=== PATIENT | female | born 1955 | race Caucasian/White ===

== ENCOUNTER → 2016-11-19 | Outpatient (CLI) | payer OTHER | LOC: FIMAGING 14:07 | DX: Z12.31 Encounter for screening mammogram for malignant neoplasm of breast (principal) | CPT/HCPCS: G0202 ==

== ENCOUNTER 2017-08-15 12:38 | Emergency (ER) | payer OTHER ==
--- NOTE | 2017-08-15 13:28 | EDPHY ---
H & P Time Seen by Provider: 08/15/17 12:57 HPI/ROS: CHIEF COMPLAINT: Left-sided chest pain HISTORY OF PRESENT ILLNESS: Patient started having symptoms on her left side when she woke up at 10:00 a.m. Yesterday. She describes intermittent waxing waning left-sided chest pain just below her scapula which comes to the front. Sometimes it is pleuritic but it is never exertional. Not associated with cough or fever or injury or trauma or skin rash. It has been present ever since 10:00 a.m. Yesterday and never completely gone but sometimes is better and sometimes is worse. REVIEW OF SYSTEMS: Eye: no change in vision ENT: no sore throat Cardiac: HPI no palpitations Pulmonary: no cough or SOB Abdomen: no vomiting, diarrhea, abdominal pain Musculoskeletal: HPI no leg swelling Skin: no rash Neuro: no headache Constitutional: no fever : no urinary symptoms A comprehensive 10 point review of systems is otherwise negative aside from elements mentioned in the history of present illness. PAST MEDICAL HISTORY: Hysterectomy and tonsillectomy, fibroid embolization. Negative for diabetes hypertension or high cholesterol Family history: Negative for premature coronary disease or venous thromboembolism. Social history: Negative for tobacco or cocaine. No recent travel or immobilization. General Appearance: Alert and conversant, cooperative. Eyes: No scleral icterus. ENT, Mouth: Normal mucous membranes. Respiratory: Normal respiratory effort, breath sounds equal, lungs are clear to auscultation. No wheezing. Cardiovascular: Regular rate and rhythm. Gastrointestinal: Abdomen is soft and non tender. Neurological: Alert, face symmetric, normal motor and sensory in extremities. Skin: No zoster. Musculoskeletal: No peripheral edema. No calf tenderness. Psychiatric: Not agitated. Emergency Department course/MDM: Patient presents with chest symptoms which would be atypical for acute coronary syndrome. I think she is low risk, will proceed with EKG and chest x-ray, troponin and D-dimer. Plan to discharge with outpatient follow-up if workup negative. 1354: D-dimer negative and troponin 0. EKG reviewed with Dr. Holm, recommendation plan for discharge and outpatient follow-up. Results discussed with the patient, symptomatic treatment and cardiology follow- up as recommended. Smoking Status: Never smoked Constitutional: Initial Vital Signs Temperature (C) 36.8 C 08/15/17 12:55 Heart Rate 75 08/15/17 12:55 Respiratory Rate 18 06/26/18 12:55 Blood Pressure 175/101 H 08/15/17 12:55 O2 Sat (%) 96 08/15/17 12:55 O2 Delivery Mode Room Air Allergies/Adverse Reactions: Penicillins Allergy (Verified 05/09/14 17:40) promethazine [From Phenergan] Allergy (Verified 08/15/17 13:02) Home Medications: Medication Instructions Recorded Estradiol 08/15/17 Wellbutrin 150mg SR (*) 08/15/17 Medical Decision Making - Diagnostics EKG Interpretation: 12-lead EKG interpreted by me; official reading is in trace master. My interpretation is sinus rhythm with left atrial abnormality, inferior Q-waves noted in 3 and F Imaging Results: Imaging Impressions Chest X-Ray 08/15/17 13:09 Impression: No acute findings in the chest. Imaging: I viewed and interpreted images myself Differential Diagnosis: Differential diagnosis considered for chest pain including but not limited to myocardial ischemia, aortic dissection, pericarditis, pulmonary embolus, chest wall pain, pleural inflammation and pulmonary infectious causes. - Data Points Laboratory Results: Laboratory Results 08/15/17 13:21 08/15/17 13:21 08/15/17 08/15/17 08/15/17 13:25 13:21 13:21 WBC RBC Hgb Hct MCV MCH MCHC RDW Plt Count MPV Neut % (Auto) Lymph % (Auto) Casey % (Auto) Eos % (Auto) Baso % (Auto) Nucleat RBC Rel Count Absolute Neuts (auto) Absolute Lymphs (auto) Absolute Monos (auto) Absolute Eos (auto) Absolute Basos (auto) Absolute Nucleated RBC Immature Gran % Immature Gran # D-Dimer < 0.27 ug/mLFEU ug/mLFEU (0.00-0.50) Sodium 141 mEq/L mEq/L (135-145) Potassium 4.0 mEq/L mEq/L (3.3-5.0) Chloride 103 mEq/L mEq/L (97-110) Carbon Dioxide 24 mEq/l mEq/l (22-31) Anion Gap 14 mEq/L mEq/L (8-16) BUN 13 mg/dL mg/dL (7-23) Creatinine 0.7 mg/dL mg/dL (0.6-1.0) Estimated GFR > 60 Glucose 90 mg/dL mg/dL (70-100) Calcium 9.9 mg/dL mg/dL (8.5-10.4) POC Troponin I 0.00 ng/mL ng/mL (0.00-0.08) 08/15/17 13:21 WBC 7.19 10^3/uL 10^3/uL (3.80-9.50) RBC 5.07 10^6/uL 10^6/uL (4.18-5.33) Hgb 15.9 g/dL g/dL (12.6-16.3) Hct 45.8 % % (38.0-47.0) MCV 90.3 fL fL (81.5-99.8) MCH 31.4 pg pg (27.9-34.1) MCHC 34.7 g/dL g/dL (32.4-36.7) RDW 12.5 % % (11.5-15.2) Plt Count 296 10^3/uL 10^3/uL (150-400) MPV 9.4 fL fL (8.7-11.7) Neut % (Auto) 51.3 % % (39.3-74.2) Lymph % (Auto) 36.9 % % (15.0-45.0) Casey % (Auto) 7.2 % % (4.5-13.0) Eos % (Auto) 2.8 % % (0.6-7.6) Baso % (Auto) 1.5 % % (0.3-1.7) Nucleat RBC Rel Count 0.0 % % (0.0-0.2) Absolute Neuts (auto) 3.69 10^3/uL 10^3/uL (1.70-6.50) Absolute Lymphs (auto) 2.65 10^3/uL 10^3/uL (1.00-3.00) Absolute Monos (auto) 0.52 10^3/uL 10^3/uL (0.30-0.80) Absolute Eos (auto) 0.20 10^3/uL 10^3/uL (0.03-0.40) Absolute Basos (auto) 0.11 10^3/uL H 10^3/uL (0.02-0.10) Absolute Nucleated RBC 0.00 10^3/uL 10^3/uL (0-0.01) Immature Gran % 0.3 % % (0.0-1.1) Immature Gran # 0.02 10^3/uL 10^3/uL (0.00-0.10) D-Dimer Sodium Potassium Chloride Carbon Dioxide Anion Gap BUN Creatinine Estimated GFR Glucose Calcium POC Troponin I Point of Care Test Results: Chemistry 08/15/17 13:25 POC Troponin I 0.00 ng/mL ng/mL (0.00-0.08) Departure - Departure Disposition: Home, Routine, Self-Care Clinical Impression: Chest pain Qualifiers: Chest pain type: unspecified Qualified Code(s): R07.9 - Chest pain, unspecified Condition: Good Instructions: Chest Pain (ED) Additional Instructions: Please follow-up this week with Cardiology in the office Dr. Holm. Referrals: Tamra Proctor MD [Primary Care Provider] - As per Instructions Alex Holm MD [Medical Doctor] - As per Instructions
[2017-08-15 13:30] LABS: PLATELET COUNT 296 10^3/uL (150-400)
--- NOTE | 2017-08-15 13:42 | CPEKG ---
Heart Rate: 66 RR Interval: 909 P-R Interval: 164 QRSD Interval: 88 QT Interval: 440 QTC Interval: 461 P Greenfield: 70 QRS Greenfield: -43 T Wave Greenfield: 39 EKG Severity - ABNORMAL ECG - EKG Impression: SINUS RHYTHM EKG Impression: SATISH, CONSIDER BIATRIAL ABNORMALITIES EKG Impression: PROBABLE INFERIOR INFARCT, OLD Electronically Signed By: Harry Vasquez 15-Aug-2017 14:46:59
[2017-08-15 14:52] VITALS: BP 161/112
== END 2017-08-15 14:50 | disposition home or self-care (01) ==
DX: R07.9 Chest pain, unspecified (principal)
CPT/HCPCS: 84484-PO

== ENCOUNTER → 2018-05-31 | Outpatient (CLI) | payer OTHER | LOC: FIMAGING 12:08 | PROVIDERS: ATTEND Family Medicine | DX: J98.4 Other disorders of lung (principal) ==